=== PATIENT | male | born 1975 | race Caucasian/White ===

== ENCOUNTER 2017-07-17 08:01 | Inpatient (IN) | payer OTHER ==
[~2017-07-17] VITALS: Ht 180.3 cm; Wt 59.0 kg
[2017-07-17] VITALS (8 sets, daily range): BP systolic 106–135; BP diastolic 65–102; PULSE 88–148; RESP 14–20; TEMP 98.3–98.5; O2SAT 96–100
[2017-07-17] MEDS ORDERED: SODIUM CHLOR 0.9% 1000 ML INJ 1,000 ML IV SCH (08:29)
[2017-07-17] MEDS ORDERED: PANTOPRAZOLE INJ 80 MG in SODIUM CHLORIDE 0.9% INJ 35 ML IV ONE (08:29)
[2017-07-17] MEDS ORDERED: METOCLOPRAMIDE HCL 10 MG/2 ML VIAL IV PUSH ONE (08:30)
[2017-07-17] MEDS ORDERED: SODIUM CHLORIDE 0.9% FLUSH 10 ML FLUSH IVF PRN (08:30)
--- NOTE | 2017-07-17 08:32 | PD ---
HPI Chief Complaint: Bleeding Time Seen by Provider: 08:29 Travel History International Travel<30 days: No Contact w/Intl Traveler<30days: No Traveled to known affect area: No History of Present Illness HPI 42-year-old male patient with history of alcohol use, presents to the ER today for nausea, vomiting, vomiting blood this morning, and black stools this morning. He feels some lightheadedness but denies any chest pains, trouble breathing, or any other symptoms. He denies any previous history of gastrointestinal bleeding. He is not on any blood thinners or other medications. Modifying Factors: None Associated Signs & Symptoms: Vomiting blood, black stools Risk Factors: None PFSH Past Medical History Hypertension: Yes Tetanus Vaccination: Never Vaccinated Past Surgical History Abdominal Surgery: Yes (hernia) Social History Alcohol Use: Yes Tobacco Use: No Substance Use: No Allergies-Medications (Allergen,Severity, Reaction): Coded Allergies: No Known Allergies (Unverified , 07/17/17) Reported Meds & Prescriptions Reported Meds & Active Scripts Active No Active Prescriptions or Reported Medications Review of Systems Except as stated in HPI: all other systems reviewed are Neg Physical Exam Narrative GENERAL: Well-developed middle-age male patient currently in mild distress. Awake and oriented 3. SKIN: Focused skin assessment warm/dry. HEAD: Atraumatic. Normocephalic. EYES: Pupils equal and round. No scleral icterus. No injection or drainage. ENT: No nasal bleeding or discharge. Mucous membranes pink and moist. NECK: Trachea midline. No JVD. CARDIOVASCULAR: Regular rate and rhythm. No murmur appreciated. RESPIRATORY: No accessory muscle use. Clear to auscultation. Breath sounds equal bilaterally. GASTROINTESTINAL: Abdomen soft, non-tender, nondistended. Hepatic and splenic margins not palpable. RECTAL EXAM: No masses or tenderness, stool is dark, Hemoccult positive. MUSCULOSKELETAL: No obvious deformities. No clubbing. No cyanosis. No edema. NEUROLOGICAL: Awake and alert. No obvious cranial nerve deficits. Motor grossly within normal limits. Normal speech. PSYCHIATRIC: Appropriate mood and affect; insight and judgment normal. Data Data Last Documented VS Vital Signs Date Time Temp Pulse Resp B/P (MAP) Pulse Ox O2 Delivery O2 Flow Rate FiO2 07/17/17 08:20 121 16 135/102 (113) 100 Room Air 07/17/17 08:08 98.3 Orders Orders Complete Blood Count With Diff (07/17/17 08:29) Comprehensive Metabolic Panel (07/17/17 08:29) Lipase (07/17/17 08:29) Prothrombin Time / Inr (Pt) (07/17/17 08:29) Act Partial Throm Time (Ptt) (07/17/17 08:29) Type And Screen (07/17/17 08:29) Ecg Monitoring (07/17/17 08:29) Iv Access Insert/Monitor (07/17/17 08:29) Oximetry (07/17/17 08:29) Sodium Chlor 0.9% 1000 Ml Inj (Ns 1000 M (07/17/17 08:29) Sodium Chloride 0.9% Flush (Ns Flush) (07/17/17 08:30) Sodium Chloride 0.9... W/Pantoprazole In (07/17/17 08:29) Sodium Chloride 0.9... W/Pantoprazole In (07/17/17 08:29) Metoclopramide Inj (Reglan Inj) (07/17/17 08:30) Sodium Chlor 0.9% 1000 Ml Inj (Ns 1000 M (07/17/17 10:15) Chest, Single Ap (07/17/17 ) Place In Observation (07/17/17 ) Vital Signs (Adult) Q4H (07/17/17 10:13) Activity Bed Rest (07/17/17 10:13) Pick Up Driver / Telemetry JENN.Q8H (07/17/17 10:13) Intake + Output JENN.QSHIFT (07/17/17 10:13) Diet Npo (07/17/17 Lunch) Sodium Chloride 0.9% Flush (Ns Flush) (07/17/17 10:15) Sodium Chloride 0.9% Flush (Ns Flush) (07/17/17 21:00) Hgb & Hct (07/17/17 16:00) Hgb & Hct (07/17/17 22:00) Hgb & Hct (07/18/17 04:00) Hgb & Hct (07/18/17 10:00) Hgb & Hct (07/18/17 16:00) Hgb & Hct (07/18/17 22:00) Complete Blood Count With Diff (07/18/17 06:00) Comprehensive Metabolic Panel (07/18/17 06:00) Electrocardiogram (07/17/17 ) Resp Oxygen Conrad C Titrat 1-4 L (07/17/17 ) Consult Gastroenterology (07/17/17 ) Neuro Checks Q4H (07/17/17 10:19) Alcohol Withdrawal Asmt-Ciwa Q4HX18 (07/17/17 10:19) ^ Seizure Precautions (07/17/17 10:19) Folic Acid (Folate) (07/18/17 09:00) Thiamine (Vit B1) (Vitamin B1) (07/18/17 09:00) Multivitamins-Minerals Therap (Theragran (07/18/17 09:00) Flumazenil Inj (Romazicon Inj) (07/17/17 10:30) Lorazepam (Ativan) (07/17/17 10:30) Lorazepam Inj (Ativan Inj) (07/17/17 10:30) Lorazepam (Ativan) (07/17/17 10:30) Lorazepam Inj (Ativan Inj) (07/17/17 10:30) Lorazepam Inj (Ativan Inj) (07/17/17 10:30) Lorazepam Inj (Ativan Inj) (07/17/17 10:30) Haloperidol Inj (Haldol Inj) (07/17/17 10:30) Acetaminophen (Tylenol) (07/17/17 10:30) Ondansetron Inj (Zofran Inj) (07/17/17 10:30) Acetaminophen (Tylenol) (07/17/17 10:30) Naloxone Inj (Narcan Inj) (07/17/17 10:30) Docusate Sodium-Senna (Jeanie-Colace) (07/17/17 21:00) Magnesium Hydroxide Liq (Milk Of Magnesi (07/17/17 10:30) Sennosides (Senokot) (07/17/17 10:30) Bisacodyl Supp (Dulcolax Supp) (07/17/17 10:30) Lactulose Liq (Lactulose Liq) (07/17/17 10:30) Admit Order (Ed Use Only) (07/17/17 10:27) Labs Laboratory Tests Test 07/17/17 08:40 White Blood Count 10.7 TH/MM3 Red Blood Count 4.41 MIL/MM3 Hemoglobin 14.9 GM/DL Hematocrit 43.5 % Mean Corpuscular Volume 98.5 FL Mean Corpuscular Hemoglobin 33.8 PG Mean Corpuscular Hemoglobin Concent 34.3 % Red Cell Distribution Width 14.4 % Platelet Count 303 TH/MM3 Mean Platelet Volume 7.9 FL Neutrophils (%) (Auto) 73.3 % Lymphocytes (%) (Auto) 15.1 % Monocytes (%) (Auto) 10.0 % Eosinophils (%) (Auto) 1.0 % Basophils (%) (Auto) 0.6 % Neutrophils # (Auto) 7.8 TH/MM3 Lymphocytes # (Auto) 1.6 TH/MM3 Monocytes # (Auto) 1.1 TH/MM3 Eosinophils # (Auto) 0.1 TH/MM3 Basophils # (Auto) 0.1 TH/MM3 CBC Comment DIFF FINAL Differential Comment Prothrombin Time 10.2 SEC Prothromb Time International Ratio 1.0 RATIO Activated Partial Thromboplast Time 23.4 SEC Blood Urea Nitrogen 26 MG/DL Creatinine 0.93 MG/DL Random Glucose 114 MG/DL Total Protein 8.1 GM/DL Albumin 4.6 GM/DL Calcium Level 9.4 MG/DL Alkaline Phosphatase 85 U/L Aspartate Amino Transf (AST/SGOT) 110 U/L Alanine Aminotransferase (ALT/SGPT) 159 U/L Total Bilirubin 0.9 MG/DL Sodium Level 133 MEQ/L Potassium Level 4.1 MEQ/L Chloride Level 93 MEQ/L Carbon Dioxide Level 29.2 MEQ/L Anion Gap 11 MEQ/L Estimat Glomerular Filtration Rate 90 ML/MIN Lipase 99 U/L MDM Medical Decision Making Medical Screen Exam Complete: Yes Emergency Medical Condition: Yes Medical Record Reviewed: Yes Interpretation(s) Laboratory Tests Test 07/17/17 08:40 Red Blood Count 4.41 MIL/MM3 (4.50-5.90) Neutrophils (%) (Auto) 73.3 % (16.0-70.0) Monocytes (%) (Auto) 10.0 % (0.0-8.0) Neutrophils # (Auto) 7.8 TH/MM3 (1.8-7.7) Monocytes # (Auto) 1.1 TH/MM3 (0-0.9) Activated Partial Thromboplast Time 23.4 SEC (24.3-30.1) Blood Urea Nitrogen 26 MG/DL (7-18) Random Glucose 114 MG/DL (74-106) Aspartate Amino Transf (AST/SGOT) 110 U/L (15-37) Alanine Aminotransferase (ALT/SGPT) 159 U/L (12-78) Sodium Level 133 MEQ/L (136-145) Chloride Level 93 MEQ/L (98-107) Differential Diagnosis GI bleed Narrative Course Patient has been given IV fluids, Protonix in the ER, and H&H is currently stable. At this point, case has been discussed with GI doctor, Dr. Tan, who states he will scope him today. Planning to admit for hospitalist service. Case has been discussed with Dr. Mendieta for admission. [facility] Point of Care Internal Pos. & Neg. Controls: Passed Fecal Specimen Occult Blood: Positive Diagnosis Primary Impression: GI bleed Admitting Information Admitting Physician Requests: Admit Scripts No Active Prescriptions or Reported Meds Meenu Bruce MD July 17, 2017 08:32
[2017-07-17 08:58] LABS: AUTOMATED NEUTROPHIL # 7.8 TH/MM3 (1.8-7.7); BASOPHIL # 0.1 TH/MM3 (0-0.2); BASOPHIL % 0.6 % (0.0-2.0); EOSINOPHIL # 0.1 TH/MM3 (0-0.4); HEMATOCRIT 43.5 % (39.0-51.0); HEMOGLOBIN 14.9 GM/DL (13.0-17.0); LYMPH % 15.1 % (9.0-44.0); LYMPHOCYTE # 1.6 TH/MM3 (1.0-4.8); MEAN CELL VOLUME 98.5 FL (80.0-100.0); MEAN CORPUSCULAR HEMOGLOBIN 33.8 PG (27.0-34.0); MEAN CORPUSCULAR HGB CONC 34.3 % (32.0-36.0); MEAN PLATELET VOLUME 7.9 FL (7.0-11.0); MONOCYTE # 1.1 TH/MM3 (0-0.9); NEUT % 73.3 % (16.0-70.0); PLATELET COUNT 303 TH/MM3 (150-450); RED BLOOD COUNT 4.41 MIL/MM3 (4.50-5.90); RED CELL DISTRIBUTION WIDTH 14.4 % (11.6-17.2); WHITE BLOOD COUNT 10.7 TH/MM3 (4.0-11.0)
[2017-07-17 09:12] LABS: PROTHROMBIN TIME - PATIENT 10.2 SEC (9.8-11.6)
[2017-07-17 09:23] LABS: ALBUMIN 4.6 GM/DL (3.4-5.0); AST (GOT) 110 U/L (15-37); BICARBONATE 29.2 MEQ/L (21.0-32.0); BLOOD UREA NITROGEN 26 MG/DL (7-18); CALCIUM 9.4 MG/DL (8.5-10.1); CHLORIDE 93 MEQ/L (98-107); CREATININE 0.93 MG/DL (0.60-1.30); GLOMERULAR FILTRATION RATE 90 ML/MIN (>89); GLUCOSE,RANDOM 114 MG/DL (74-106); SODIUM (NA) 133 MEQ/L (136-145)
[2017-07-17 09:25] LABS: ALT (GPT) 159 U/L (12-78)
[2017-07-17 09:28] LABS: ALKALINE PHOSPHATASE 85 U/L (45-117); TOTAL BILIRUBIN ADULT 0.9 MG/DL (0.2-1.0); TOTAL PROTEIN 8.1 GM/DL (6.4-8.2)
[2017-07-17] MEDS: PANTOPRAZOLE INJ 80 MG in SODIUM CHLORIDE 0.9% INJ 100 ML IV SCH (09:31)
[2017-07-17] MEDS ORDERED: SODIUM CHLORIDE 0.9% FLUSH 10 ML FLUSH IV FLUSH PRN (10:15)
[2017-07-17] MEDS ORDERED: SODIUM CHLOR 0.9% 1000 ML INJ 1,000 ML IV ONE (10:15)
[2017-07-17] MEDS ORDERED: LACTULOSE SYRUP 20 GM/30 ML CUP PO PRN (10:30)
[2017-07-17] MEDS ORDERED: NALOXONE HCL 0.4 MG/ML AMP IV PUSH PRN (10:30)
[2017-07-17] MEDS ORDERED: ACETAMINOPHEN 325 MG TAB PO PRN ×2 (10:30→11:00)
[2017-07-17] MEDS ORDERED: LORazepam 1 MG TAB PO PRN (10:30)
[2017-07-17] MEDS ORDERED: LORazepam 2 MG TAB PO PRN (10:30)
[2017-07-17] MEDS ORDERED: LORazepam 2 MG/ML VIAL IV PUSH PRN ×4 (10:30)
[2017-07-17] MEDS ORDERED: FLUMAZENIL 0.5 MG/5 ML VIAL IV PUSH PRN (10:30)
[2017-07-17] MEDS ORDERED: BISACODYL 10 MG SUPP RECTAL PRN (11:00)
[2017-07-17] MEDS ORDERED: HALOPERIDOL LACTATE 5 MG/ML AMP IM PRN (11:00)
--- NOTE | 2017-07-17 11:03 | RADRPT ---
EXAM DATE: 07/17/2017 10:53 AM EDT AGE/SEX: 42 years / Male INDICATIONS: Short of breath CLINICAL DATA: This is the patient's initial encounter. Patient reports that signs and symptoms have been present for 1 day and indicates a pain score of 0/10. MEDICAL/SURGICAL HISTORY: None. None. COMPARISON: No prior [place] exams available for comparison. FINDINGS: A single AP view of the chest demonstrates the lungs to be symmetrically aerated without evidence of mass, infiltrate or effusion. The cardiomediastinal contours are unremarkable. Osseous structures a re intact. CONCLUSION: No active disease. Electronically signed by: Puma Torres MD 07/17/2017 11:02 AM EDT
--- NOTE | 2017-07-17 11:23 | HHI.HP ---
[facility] No Primary Care Physician Admission Diagnosis GI bleed/tachycardia Diagnoses: Chief Complaint: GI bleed Travel History International Travel<30 Days: No Contact w/Intl Traveler <30 Da: No Traveled to Known Affected Are: No History of Present Illness This is a 42-year-old male who presents to the emergency department because of GI bleed. Started last night when he vomited dark material associated with chills and diaphoresis. Early this morning, he again vomited this time with dark blood associated with upper abdominal pressure which he has been having for some time now states feels like indigestion. He also noted dark foul- smelling loose stools today. Denies history of GI bleed, aspirin and NSAID usage. Patient history of hypertension, alcohol abuse and recently quit tobacco. In the ED he was guaiac positive. All other systems reviewed negative Review of Systems Except as stated in HPI: all other systems reviewed are Neg Past Family Social History Past Medical History Hypertension Past Surgical History Hernia repair Reported Medications None Allergies: Coded Allergies: No Known Allergies (Unverified , 07/17/17) Family History Diabetes Social History As previously mentioned Physical Exam Vital Signs Vital Signs Date Time Temp Pulse Resp B/P (MAP) Pulse Ox O2 Delivery O2 Flow Rate FiO2 07/17/17 10:52 109 18 121/87 (98) 96 Room Air 07/17/17 08:20 121 16 135/102 (113) 100 Room Air 07/17/17 08:08 98.3 148 20 106/88 (94) 99 Physical Exam GENERAL: This is a well-nourished, well-developed patient, in no apparent distress. SKIN: No rashes, ecchymoses or lesions. Diaphoretic HEAD: Atraumatic. Normocephalic. No temporal or scalp tenderness. EYES: Pupils equal round and reactive. Extraocular motions intact. No scleral icterus. No injection or drainage. ENT: Nose without bleeding, purulent drainage or septal hematoma. Throat without erythema, tonsillar hypertrophy or exudate. Uvula midline. Airway patent. NECK: Trachea midline. No JVD or lymphadenopathy. Supple, nontender, no meningeal signs. CARDIOVASCULAR: Bradycardic with normal rhythm without murmurs, gallops, or rubs. RESPIRATORY: Clear to auscultation. Breath sounds equal bilaterally. No wheezes , rales, or rhonchi. GASTROINTESTINAL: Abdomen soft, tender epigastric, nondistended. No guarding. MUSCULOSKELETAL: Extremities without clubbing, cyanosis, or edema. No joint tenderness, effusion, or edema noted. No calf tenderness. Negative Homans sign bilaterally. NEUROLOGICAL: Awake and alert. Cranial nerves II through XII intact. Motor and sensory grossly within normal limits. Five out of 5 muscle strength in all muscle groups. Normal speech. No tremors Laboratory Laboratory Tests Test 07/17/17 08:40 White Blood Count 10.7 Red Blood Count 4.41 Hemoglobin 14.9 Hematocrit 43.5 Mean Corpuscular Volume 98.5 Mean Corpuscular Hemoglobin 33.8 Mean Corpuscular Hemoglobin Concent 34.3 Red Cell Distribution Width 14.4 Platelet Count 303 Mean Platelet Volume 7.9 Neutrophils (%) (Auto) 73.3 Lymphocytes (%) (Auto) 15.1 Monocytes (%) (Auto) 10.0 Eosinophils (%) (Auto) 1.0 Basophils (%) (Auto) 0.6 Neutrophils # (Auto) 7.8 Lymphocytes # (Auto) 1.6 Monocytes # (Auto) 1.1 Eosinophils # (Auto) 0.1 Basophils # (Auto) 0.1 CBC Comment DIFF FINAL Differential Comment Prothrombin Time 10.2 Prothromb Time International Ratio 1.0 Activated Partial Thromboplast Time 23.4 Blood Urea Nitrogen 26 Creatinine 0.93 Random Glucose 114 Total Protein 8.1 Albumin 4.6 Calcium Level 9.4 Alkaline Phosphatase 85 Aspartate Amino Transf (AST/SGOT) 110 Alanine Aminotransferase (ALT/SGPT) 159 Total Bilirubin 0.9 Sodium Level 133 Potassium Level 4.1 Chloride Level 93 Carbon Dioxide Level 29.2 Anion Gap 11 Estimat Glomerular Filtration Rate 90 Lipase 99 Result Diagram: 07/17/17 0840 07/17/17 0840 Imaging Last Impressions Chest X-Ray 07/17/17 0000 Signed Impressions: CONCLUSION: No active disease. Caprini VTE Risk Assessment Caprini VTE Risk Assessment: No/Low Risk (score <= 1) Caprini Risk Assessment Model Point Value = 1 Point Value = 2 Point Value = 3 Point Value = 5 Age 41-60 Minor surgery BMI > 25 kg/m2 Swollen legs Varicose veins or History of unexplained or recurrent spontaneous Oral contraceptives or hormone replacement Sepsis (< 1 month) Serious lung disease, including pneumonia (< 1 month) Abnormal pulmonary function Acute myocardial infarction Congestive heart failure (< 1 month) History of inflammatory bowel disease Medical patient at bed rest Age 61-74 Arthroscopic surgery Major open surgery (> 45 min) Laparoscopic surgery (> 45 min) Malignancy Confined to bed (> 72 hours) Immobilizing plaster cast Central venous access Age >= 75 History of VTE Family history of VTE Factor V Leiden Prothrombin [id number] Lupus anticoagulant Anticardiolipin antibodies Elevated serum homocysteine Heparin-induced thrombocytopenia Other congenital or acquired thrombophilia Stroke (< 1 month) Elective arthroplasty Hip, pelvis, or leg fracture Acute spinal cord injury (< 1 month) Prophylaxis Regimen Total Risk Factor Score Risk Level Prophylaxis Regimen 0-1 Low Early ambulation 2 Moderate Order ONE of the following: *Sequential Compression Device (SCD) *Heparin 5000 units SQ BID 3-4 Higher Order ONE of the following medications: *Heparin 5000 units SQ TID *Enoxaparin/Lovenox 40 mg SQ daily (WT < 150 kg, CrCl > 30 mL/min) *Enoxaparin/Lovenox 30 mg SQ daily (WT < 150 kg, CrCl > 10-29 mL/min) *Enoxaparin/Lovenox 30 mg SQ BID (WT < 150 kg, CrCl > 30 mL/min) AND/OR *Sequential Compression Device (SCD) 5 or more Highest Order ONE of the following medications: *Heparin 5000 units SQ TID (Preferred with Epidurals) *Enoxaparin/Lovenox 40 mg SQ daily (WT < 150 kg, CrCl > 30 mL/min) *Enoxaparin/Lovenox 30 mg SQ daily (WT < 150 kg, CrCl > 10-29 mL/min) *Enoxaparin/Lovenox 30 mg SQ BID (WT < 150 kg, CrCl > 30 mL/min) AND *Sequential Compression Device (SCD) Assessment and Plan Problem List: (1) GI bleed ICD Code: K92.2 - Gastrointestinal hemorrhage, unspecified Status: Acute Assessment and Plan This is a 42-year-old male who presents to the emergency department because of vomiting with dark blood associated with upper abdominal pressure, diaphoresis and chills Upper GI bleed. Patient will be kept n.p.o., start IV hydration and continue Protonix infusion. GI has been consulted for endoscopy. Monitor blood counts Alcohol abuse. Counseled. CIWA protocol Mild hyponatremia likely from alcohol use. Asymptomatic. Monitor History of hypertension. Will monitor Low risk for DVT Discussed Condition With Patient Bret Mendieta MD July 17, 2017 11:23
[2017-07-17] MEDS: SODIUM CHLOR 0.9% 1000 ML INJ 1,000 ML IV SCH (11:30)
[2017-07-17] MEDS ORDERED: PROPOFOL 200 MG/20 ML AMP IV ONE (12:00)
[2017-07-17] MEDS ORDERED: ONDANSETRON HCL 4 MG/2 ML VIAL IVP PRN (12:00)
--- NOTE | 2017-07-17 12:53 | PD.CONS ---
HPI History of Present Illness This is a 42 year old slim male who presented to the emergency room department on 07/17/2017 with symptoms of chills, coffee-ground emesis as well as melena stools. Onset of symptoms within the last 24 hours and continues with tachycardic heart rate which is currently 109. Patient has had at least 5 large loose diarrhea stools which are dark and tarry and he notes nausea and vomiting coffee-ground emesis on 3 different occasions over the past 24 hours. Patient notes abdominal pain predominantly in the gastric area and does note some heartburn up into the esophageal area. Patient states that he has noted some mild heartburn over the past year but has never had any previous treatment for GERD or reflux. Patient denies any history of EGD or colonoscopy. Patient does note daily alcohol consumption of at least 6-8 beers since the age of 23. Patient has also been a long-term tobacco user but had cut down over the past few months and actually quit this past week with his . He denies any illicit drug use. He is and his and small children are at his bedside. No family history of colon cancer but mother has a history of hep C. (Cristal Blake) PFSH Past Medical History Hypertension Tobacco dependence Alcohol dependence Past Surgical History Hernia repair (Cristal Blake) Coded Allergies: No Known Allergies (Unverified , 07/17/17) Medications Administered Medications Medications (Trade) Dose Ordered Sig/Gabriel Route PRN Reason Start Time Stop Time Status Last Admin Dose Admin Pantoprazole Sodium 80 mg/ Sodium Chloride 100 ml @ 10 mls/hr Q10H IV 07/17/17 08:29 07/17/17 09:31 Family History Diabetes No family history of colon cancer mom history of hep C Social History As previously mentioned (Cristal Blake) Review of Systems Gastrointestinal: COMPLAINS OF: Abdominal pain, Black stools (Gastric), Nausea , Vomiting Psychiatric: COMPLAINS OF: Anxiety (Cristal Blake) GI Exam Vitals I&O Vital Signs Date Time Temp Pulse Resp B/P (MAP) Pulse Ox O2 Delivery O2 Flow Rate FiO2 07/17/17 12:15 14 96 Room Air 07/17/17 10:52 109 18 121/87 (98) 96 Room Air 07/17/17 10:46 98 21 07/17/17 08:20 121 16 135/102 (113) 100 Room Air 07/17/17 08:08 98.3 148 20 106/88 (94) 99 I/O 07/16/17 07/16/17 07/16/17 07/17/17 07/17/17 07/17/17 07:00 15:00 23:00 07:00 15:00 23:00 Intake Total 1000 ml Balance 1000 ml Intake IV Total 1000 ml Imaging Last Impressions Chest X-Ray 07/17/17 0000 Signed Impressions: CONCLUSION: No active disease. Laboratory Test 07/17/17 08:40 White Blood Count 10.7 TH/MM3 Red Blood Count 4.41 MIL/MM3 Hemoglobin 14.9 GM/DL Hematocrit 43.5 % Mean Corpuscular Volume 98.5 FL Mean Corpuscular Hemoglobin 33.8 PG Mean Corpuscular Hemoglobin Concent 34.3 % Red Cell Distribution Width 14.4 % Platelet Count 303 TH/MM3 Mean Platelet Volume 7.9 FL Neutrophils (%) (Auto) 73.3 % Lymphocytes (%) (Auto) 15.1 % Monocytes (%) (Auto) 10.0 % Eosinophils (%) (Auto) 1.0 % Basophils (%) (Auto) 0.6 % Neutrophils # (Auto) 7.8 TH/MM3 Lymphocytes # (Auto) 1.6 TH/MM3 Monocytes # (Auto) 1.1 TH/MM3 Eosinophils # (Auto) 0.1 TH/MM3 Basophils # (Auto) 0.1 TH/MM3 CBC Comment DIFF FINAL Differential Comment Prothrombin Time 10.2 SEC Prothromb Time International Ratio 1.0 RATIO Activated Partial Thromboplast Time 23.4 SEC Blood Urea Nitrogen 26 MG/DL Creatinine 0.93 MG/DL Random Glucose 114 MG/DL Total Protein 8.1 GM/DL Albumin 4.6 GM/DL Calcium Level 9.4 MG/DL Alkaline Phosphatase 85 U/L Aspartate Amino Transf (AST/SGOT) 110 U/L Alanine Aminotransferase (ALT/SGPT) 159 U/L Total Bilirubin 0.9 MG/DL Sodium Level 133 MEQ/L Potassium Level 4.1 MEQ/L Chloride Level 93 MEQ/L Carbon Dioxide Level 29.2 MEQ/L Anion Gap 11 MEQ/L Estimat Glomerular Filtration Rate 90 ML/MIN Lipase 99 U/L Physical Examination HEENT: Pupils round and reactive to light; normocephalic; atraumatic; no jaundice. Speech clear NECK: Neck is supple, no JVD, no lymphadenopathy. CHEST: Chest is clear to auscultation and percussion. CARDIAC: Sinus tachycardia currently 109 heart rate ABDOMEN: Soft, nondistended, gastric tenderness to light palpation as well as aching sensation ,no hepatosplenomegaly; bowel sounds are present in all four quadrants. EXTREMITIES: No clubbing, cyanosis, or edema. SKIN: Normal; no rash; no jaundice. 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 Patient's had complications of coffee-ground emesis 3 over the past 24 hours as well as up to 5 large melena stools. He continues to have symptoms; heart rate is currently 109 mild tachycardia. Patient denies any history of GI bleed but does consume daily alcohol since the age of 23 as well as tobacco abuse up until this past week he has a history of mom with hep C but no family history of colon cancer. He also notes approximately 15 pound weight loss in the past 2 -3 years unintentional. Patient also notes symptoms of GERD and reflux over the past year but is never had any treatment for it no previous EGD or colonoscopy currently patient is n.p.o. Current hemoglobin is 14.9, elevated liver enzymes with AST 110 and ALT 159. Total bilirubin normal at 0.9 these elevated liver enzymes may be related to alcoholic hepatitis versus hepatocellular disease. Discussed with the patient the need to follow us on an outpatient basis when he is discharged for monitoring of his LFTs and liver workup. Plan EGD today, consent, called to place on GI schedule confirmed Maintain n.p.o. PPI Antiemetics Monitor labs with special attention to any drop in hemoglobin or obvious bleeding Hepatitis panel Ultrasound of the abdomen Further recommendations to follow Patient was seen per myself and Dr. Tan, note was written on his behalf (Cristal Blake) Physician Comments Patient seen and examined Agree with above Continue with current supportive care Monitor labs Plan for EGD today (Rickey Tan MD) Cristal Blake July 17, 2017 12:53 Rickey Tan MD July 17, 2017 18:33
--- NOTE | 2017-07-17 14:35 | RADRPT ---
EXAM DATE: 07/17/2017 2:24 PM EDT AGE/SEX: 42 years / Male INDICATIONS: Increased lab values. Nausea and vomiting. CLINICAL DATA: This is the patient's initial encounter. Patient reports that signs and symptoms have been present for 1 day and indicates a pain score of 0/10. MEDICAL/SURGICAL HISTORY: Hypertension. Hernia. . Hernia repair. COMPARISON: No prior [place] exams available for comparison. No external comparison. MEASUREMENTS (cm x cm x cm): Liver:__ 16.4 cm length Common Bile Duct:__ 4mm Right Kidney:__ 11.6 x 6.3 x 4.1 cm FINDINGS: Liver: Small anechoic cyst measuring 7 x 6 x 5 mm in the left lobe of the liver. Liver otherwise demo nstrates normal echogenicity without volume loss or focal mass. Portal Vein: Hepatofugal flow seen in portal vein. Common Duct: No intraluminal mass or stone visualized. Gallbladder: Demonstrates no wall thickening or pericholecystic fluid. No stones visualized. Gallbla dder Wall: 2 mm Pancreas: The visualized portions are within normal limits Right Kidney: Normal cortical echogenicity without focal mass or hydronephrosis. Other: None. CONCLUSION: 1. Small subcentimeter cyst in the left lobe of the liver. 2. Otherwise, unremarkable right upper quadrant ultrasound exam. Specifically, no sonographic eviden ce for cholelithiasis or acute cholecystitis. Electronically signed by: Rickey Parmar MD 07/17/2017 2:34 PM EDT
[2017-07-17] MEDS ORDERED: METOPROLOL TARTRATE 25 MG TAB PO PRN (14:45)
[2017-07-17] MEDS ORDERED: CHLORHEXIDINE GLUCONATE 2 % 1 PACK (2 CLOTHS) TOPICAL PRN (14:45)
[2017-07-17] MEDS ORDERED: LACTATED RINGER'S 1000 ML IV PRN (14:45)
[2017-07-17] MEDS ORDERED: POVIDONE IODINE 5% (ANTISEPSIS KIT) 4 APPLICATIONS EACH NARE PRN (14:45)
[2017-07-17] MEDS ORDERED: SODIUM CHLORID 0.9% 500 ML IV PRN (14:45)
--- NOTE | 2017-07-17 18:36 | PD.PROCEDR ---
GI Procedure PROCEDURE PERFORMED EGD INDICATION FOR PROCEDURE GI bleed PROCEDURE: The procedure, risks and benefits were discussed with Patient/POA and informed consent was obtained. Anesthesia sedated Patient with Diprivan. Patient was placed in the left lateral decubitus position. EGD: The Pentax videoscope was introduced through the oropharynx and advanced to the second portion of the duodenum under direct visualization. Retroflexion was performed in the stomach. FINDINGS: The esophagus this was normal The stomach there was a large clot covering the greater curve of the stomach with evidence of fresh blood otherwise the rest of the gastric mucosa was unremarkable the fundus showed no evidence of varices in the antrum was basically normal and the lesser curve was also normal The duodenum this was normal ESTIMATED BLOOD LOSS: There was at least 100 cc of blood in the stomach if not more SPECIMENS REMOVED: None COMPLICATIONS: None IMPRESSION: Gastric bleed from the greater curve of the stomach PLAN: We will type and cross and hold 2 units of blood We will get a stat H&H Case was discussed with interventional radiology patient will be going down for angiogram possible embolization Continue PPI Rickey Tan MD July 17, 2017 18:35
[2017-07-17 18:51] LABS: HEMATOCRIT 27.8 % (39.0-51.0); HEMOGLOBIN 9.5 GM/DL (13.0-17.0)
[2017-07-17 19:23] LABS: INTERNATIONAL NORMALIZED RATIO 1.1 RATIO; PROTHROMBIN TIME - PATIENT 11.2 SEC (9.8-11.6)
[2017-07-17] MEDS ORDERED: MIDAZOLAM HCL 2 MG/2 ML VIAL ONE ×3 (19:56→20:16)
[2017-07-17] MEDS ORDERED: IODIXANOL 320 MG/ML 50 ML VIAL (for RAD SPEC) I-ARTERIAL ONE (20:47)
[2017-07-17] MEDS ORDERED: GELATIN 12 MM/7 MM FOAM I-ARTERIAL ONE (20:47)
[2017-07-17] MEDS: DOCUSATE SODIUM 50 MG/SENNA 8.6 MG TAB PO SCH (21:00)
[2017-07-17] MEDS ORDERED: SENNOSIDES 8.6 MG TAB PO PRN (21:00)
[2017-07-17] MEDS ORDERED: MAGNESIUM HYDROXIDE SUSP 30 ML CUP PO PRN (21:00)
[2017-07-17] MEDS: SODIUM CHLORIDE 0.9% FLUSH 10 ML FLUSH IV FLUSH SCH (21:00)
--- NOTE | 2017-07-17 21:07 | PD.RAD ---
Post Procedure Progress Note Pre Procedure Diagnosis: (1) GI bleed Post Procedure Diagnosis: (1) GI bleed Procedure Date: July 17, 2017 Supervising Radiologist: Maciel Mcknight Proceduralist/Assist: Olivia Calvo, RT(R)(CV), Sugey Lawton RT(R) Anesthesia: Local, Analgesia, Conscious Sedation Plan of Activity Patient to Unit: Other (ED) Patient Condition: Fair See PACS Report for procedural detail/treatment Vascular-Arterial Procedure Procedure 1 Procedure Site: Celiac (right gastroepiploic) Procedure(s): Angiogram, Embolization Access Access Site(s): Right Femoral Artery Closure Site(s): Right hemostasis patch Findings: Replaced right hepatic. No active bleed. Right Gastroepiploic embolized with gel-foam and series of tornado and interlock coils Maciel Mcknight MD July 17, 2017 21:07
[2017-07-18] VITALS (17 sets, daily range): BP systolic 110–118; BP diastolic 64–78; PULSE 76–116; RESP 16–20; TEMP 96.2–99.1; O2SAT 94–100
[2017-07-18 00:26] LABS: HEMATOCRIT 19.9 % (39.0-51.0); HEMOGLOBIN 6.8 GM/DL (13.0-17.0)
[2017-07-18] MEDS: PANTOPRAZOLE INJ 80 MG in SODIUM CHLORIDE 0.9% INJ 100 ML IV SCH ×3 (02:03→14:29)
[2017-07-18] MEDS: SODIUM CHLOR 0.9% 1000 ML INJ 1,000 ML IV SCH ×3 (04:38→23:15)
[2017-07-18 07:04] LABS: AUTOMATED NEUTROPHIL # 5.3 TH/MM3 (1.8-7.7); BASOPHIL % 0.5 % (0.0-2.0); EOSINOPHIL # 0.1 TH/MM3 (0-0.4); EOSINOPHIL % 0.9 % (0.0-4.0); HEMATOCRIT 22.5 % (39.0-51.0); HEMOGLOBIN 7.7 GM/DL (13.0-17.0); LYMPH % 31.3 % (9.0-44.0); LYMPHOCYTE # 2.7 TH/MM3 (1.0-4.8); MEAN CORPUSCULAR HEMOGLOBIN 30.6 PG (27.0-34.0); MEAN PLATELET VOLUME 8.1 FL (7.0-11.0); MONO % 7.3 % (0.0-8.0); MONOCYTE # 0.6 TH/MM3 (0-0.9); PLATELET COUNT 127 TH/MM3 (150-450); RED CELL DISTRIBUTION WIDTH 19.5 % (11.6-17.2); WHITE BLOOD COUNT 8.8 TH/MM3 (4.0-11.0)
[2017-07-18 07:40] LABS: ALBUMIN 2.3 GM/DL (3.4-5.0); BICARBONATE 23.6 MEQ/L (21.0-32.0); CALCIUM-PROTEIN CORRECTED 8.7 MG/DL (8.5-10.1); CREATININE 0.53 MG/DL (0.60-1.30); TOTAL BILIRUBIN ADULT 0.6 MG/DL (0.2-1.0); TOTAL PROTEIN 4.1 GM/DL (6.4-8.2)
[2017-07-18] MEDS: DOCUSATE SODIUM 50 MG/SENNA 8.6 MG TAB PO SCH ×2 (09:00→21:38)
[2017-07-18] MEDS: SODIUM CHLORIDE 0.9% FLUSH 10 ML FLUSH IV FLUSH SCH ×2 (09:51→21:43)
[2017-07-18] MEDS: MULTIVITAMINS/MINERALS THERAPEUTIC TAB PO SCH (09:51)
[2017-07-18] MEDS: FOLIC ACID 1 MG TAB PO SCH (09:51)
[2017-07-18] MEDS: THIAMINE HCL 100 MG TAB PO SCH (09:51)
--- NOTE | 2017-07-18 09:59 | HHI.PR ---
Subjective Remarks Follow-up GI bleed. Still having melena. He develops palpitations when he gets out of bed. Objective Vitals Vital Signs Date Time Temp Pulse Resp B/P (MAP) Pulse Ox O2 Delivery O2 Flow Rate FiO2 07/18/17 09:08 96 21 07/18/17 08:06 98.2 116 18 116/65 (82) 98 07/18/17 06:49 98.6 78 18 110/78 99 07/18/17 06:15 98.8 112 18 118/78 99 07/18/17 05:10 98.8 92 18 112/78 99 07/18/17 04:22 98.8 108 16 116/69 (85) 100 07/18/17 04:03 98.4 102 18 110/76 99 07/18/17 03:39 98.6 110 18 110/78 99 07/18/17 02:48 98.2 108 18 110/69 (83) 99 07/18/17 02:16 98.2 110 18 116/78 99 07/18/17 01:39 98.0 106 18 110/72 99 07/18/17 01:20 98.0 102 18 116/78 (91) 99 07/18/17 00:47 96.2 101 18 115/75 (88) 98 07/17/17 23:50 98.5 99 07/17/17 23:50 88 18 110/70 (83) 07/17/17 23:20 98.5 105 16 117/79 (92) 99 07/17/17 22:31 98.4 115 16 108/65 (79) 100 07/17/17 22:15 98.2 100 16 99 Nasal Cannula 2 07/17/17 22:00 122 16 105/67 (80) 100 Nasal Cannula 2 07/17/17 21:45 108 14 105/65 (78) 99 Nasal Cannula 2 07/17/17 21:30 104 14 112/60 (77) 100 Nasal Cannula 2 07/17/17 21:15 98.8 101 12 110/64 (79) 100 Nasal Cannula 2 07/17/17 19:06 106 18 101/62 (75) 100 Room Air 07/17/17 18:50 100 18 105/61 (76) 100 Room Air 07/17/17 18:42 98.8 115 18 100/63 (75) 100 Room Air 07/17/17 12:15 14 96 Room Air 07/17/17 10:52 109 18 121/87 (98) 96 Room Air 07/17/17 10:46 98 21 I/O 07/17/17 07/17/17 07/17/17 07/18/17 07/18/17 07/18/17 07:00 15:00 23:00 07:00 15:00 23:00 Intake Total 1000 ml 1000 ml 2940 ml Output Total 500 ml Balance 1000 ml 1000 ml 2440 ml Intake Oral 350 ml IV Total 1000 ml 1080 ml Packed Cells 1450 ml Blood Product IV Normal Saline Flush 60 ml Other 1000 ml Output Stool Total 500 ml # Bowel Movements 1 5 Result Diagram: 07/18/17 0635 07/18/17 0635 Imaging Last Impressions Liver Ultrasound 07/17/17 0000 Signed Impressions: CONCLUSION: 1. Small subcentimeter cyst in the left lobe of the liver. 2. Otherwise, unremarkable right upper quadrant ultrasound exam. Specifically, no sonographic evidence for cholelithiasis or acute cholecystitis. Chest X-Ray 07/17/17 0000 Signed Impressions: CONCLUSION: No active disease. Objective Remarks GENERAL: This is a well-nourished, well-developed patient, in no apparent distress. SKIN: No rashes, ecchymoses or lesions. Diaphoretic CARDIOVASCULAR: Tachycardic with normal rhythm without murmurs, gallops, or rubs. RESPIRATORY: Clear to auscultation. Breath sounds equal bilaterally. No wheezes , rales, or rhonchi. GASTROINTESTINAL: Abdomen soft, tender epigastric, nondistended. No guarding. MUSCULOSKELETAL: Extremities without clubbing, cyanosis, or edema. No joint tenderness, effusion, or edema noted. No calf tenderness. Negative Homans sign bilaterally. NEUROLOGICAL: Awake and alert. Cranial nerves II through XII intact. Motor and sensory grossly within normal limits. Five out of 5 muscle strength in all muscle groups. Normal speech. No tremors Procedures EGD and gastroepiploic artery embolization A/P Problem List: (1) GI bleed ICD Code: K92.2 - Gastrointestinal hemorrhage, unspecified Status: Acute Assessment and Plan This is a 42-year-old male who presents to the emergency department because of vomiting with dark blood associated with upper abdominal pressure, diaphoresis and chills Gastric bleeding status post gastroepiploic artery embolization. Patient will be on clear liquid diet, IV hydration and Protonix infusion. GI consulted Anemia secondary to acute blood loss status post transfusion. He is symptomatic we will transfuse 1 more unit and continue blood count monitoring to keep hemoglobin at least 7 Alcohol abuse. Counseled. [facility] protocol Mild hyponatremia likely from alcohol use. Asymptomatic. Monitor History of hypertension. Will monitor Low risk for DVT Discharge Planning Not ready for discharge Bret Mendieta MD July 18, 2017 09:59
[2017-07-18] MEDS ORDERED: SODIUM CHLOR 0.9% 250 ML INJ 250 ML IV ONE (10:00)
[2017-07-18] MEDS ORDERED: NITROGLYCERIN 1000 MCG/5 ML VIAL OTHER ONE (10:55)
[2017-07-18] MEDS ORDERED: SUCCINYLCHOLINE CHLORIDE 200 MG/10 ML VIAL IV ONE (12:00)
[2017-07-18] MEDS ORDERED: PHENYLEPH/NS 1000 MCG/10 ML SYR IV ONE (12:00)
[2017-07-18] MEDS ORDERED: DEXAMETHASONE SOD PHOS 4 MG/ML VIAL IV ONE (12:00)
[2017-07-18] MEDS ORDERED: PROPOFOL 200 MG/20 ML AMP IV ONE (12:00)
[2017-07-18] MEDS ORDERED: ONDANSETRON HCL 4 MG/2 ML VIAL IV PUSH ONE (12:00)
[2017-07-18] MEDS ORDERED: LIDOCAINE HCL 1% PF 5 ML SYRINGE OTHER ONE (12:00)
[2017-07-18] MEDS ORDERED: METOCLOPRAMIDE HCL 10 MG/2 ML VIAL IV PUSH ONE (12:30)
--- NOTE | 2017-07-18 12:34 | HHI.GIFU ---
Subjective Remarks Pt is resting in bed, still passing black stools not as bad as they used to be, received 2 units of blood last night, hgb today is 7.7, currently receiving 3rd unit. (Helen Stephens SARKIS) Objective Vitals I&O Vital Signs Date Time Temp Pulse Resp B/P (MAP) Pulse Ox O2 Delivery O2 Flow Rate FiO2 07/18/17 11:40 98.8 76 18 111/64 100 07/18/17 11:13 97.9 86 20 112/68 94 07/18/17 09:08 96 21 07/18/17 08:06 98.2 116 18 116/65 (82) 98 07/18/17 06:49 98.6 78 18 110/78 99 07/18/17 06:15 98.8 112 18 118/78 99 07/18/17 05:10 98.8 92 18 112/78 99 07/18/17 04:22 98.8 108 16 116/69 (85) 100 07/18/17 04:03 98.4 102 18 110/76 99 07/18/17 03:39 98.6 110 18 110/78 99 07/18/17 02:48 98.2 108 18 110/69 (83) 99 07/18/17 02:16 98.2 110 18 116/78 99 07/18/17 01:39 98.0 106 18 110/72 99 07/18/17 01:20 98.0 102 18 116/78 (91) 99 07/18/17 00:47 96.2 101 18 115/75 (88) 98 07/17/17 23:50 98.5 99 07/17/17 23:50 88 18 110/70 (83) 07/17/17 23:20 98.5 105 16 117/79 (92) 99 07/17/17 22:31 98.4 115 16 108/65 (79) 100 07/17/17 22:15 98.2 100 16 99 Nasal Cannula 2 07/17/17 22:00 122 16 105/67 (80) 100 Nasal Cannula 2 07/17/17 21:45 108 14 105/65 (78) 99 Nasal Cannula 2 07/17/17 21:30 104 14 112/60 (77) 100 Nasal Cannula 2 07/17/17 21:15 98.8 101 12 110/64 (79) 100 Nasal Cannula 2 07/17/17 19:06 106 18 101/62 (75) 100 Room Air 07/17/17 18:50 100 18 105/61 (76) 100 Room Air 07/17/17 18:42 98.8 115 18 100/63 (75) 100 Room Air I/O 07/17/17 07/17/17 07/17/17 07/18/17 07/18/17 07/18/17 07:00 15:00 23:00 07:00 15:00 23:00 Intake Total 1000 ml 1000 ml 2940 ml Output Total 500 ml Balance 1000 ml 1000 ml 2440 ml Intake Oral 350 ml IV Total 1000 ml 1080 ml Packed Cells 1450 ml Blood Product IV Normal Saline Flush 60 ml Other 1000 ml Output Stool Total 500 ml # Bowel Movements 1 5 Laboratory Laboratory Tests Test 07/17/17 18:29 07/17/17 23:40 07/18/17 06:35 Hemoglobin 9.5 6.8 7.7 Hematocrit 27.8 19.9 22.5 Prothrombin Time 11.2 Prothromb Time International Ratio 1.1 Activated Partial Thromboplast Time 24.7 Hepatitis A IgM Antibody NONREACTIVE Hepatitis B Surface Antigen NONREACTIVE Hepatitis B Core IgM Antibody NONREACTIVE Hepatitis C IgG Antibody NONREACTIVE White Blood Count 8.8 Red Blood Count 2.50 Mean Corpuscular Volume 90.0 Mean Corpuscular Hemoglobin 30.6 Mean Corpuscular Hemoglobin Concent 34.0 Red Cell Distribution Width 19.5 Platelet Count 127 Mean Platelet Volume 8.1 Neutrophils (%) (Auto) 60.0 Lymphocytes (%) (Auto) 31.3 Monocytes (%) (Auto) 7.3 Eosinophils (%) (Auto) 0.9 Basophils (%) (Auto) 0.5 Neutrophils # (Auto) 5.3 Lymphocytes # (Auto) 2.7 Monocytes # (Auto) 0.6 Eosinophils # (Auto) 0.1 Basophils # (Auto) 0.0 CBC Comment DIFF FINAL Differential Comment Blood Urea Nitrogen 28 Creatinine 0.53 Random Glucose 77 Total Protein 4.1 Albumin 2.3 Calcium Level 7.0 Alkaline Phosphatase 34 Aspartate Amino Transf (AST/SGOT) 23 Alanine Aminotransferase (ALT/SGPT) 58 Total Bilirubin 0.6 Sodium Level 140 Potassium Level 3.9 Chloride Level 108 Carbon Dioxide Level 23.6 Anion Gap 8 Estimat Glomerular Filtration Rate 172 Protein Corrected Calcium 8.7 Imaging Last Impressions Liver Ultrasound 07/17/17 Signed Impressions: CONCLUSION: 1. Small subcentimeter cyst in the left lobe of the liver. 2. Otherwise, unremarkable right upper quadrant ultrasound exam. Specifically, no sonographic evidence for cholelithiasis or acute cholecystitis. Chest X-Ray 07/17/17 Signed Impressions: CONCLUSION: No active disease. Physical Exam HEENT: normocephalic; atraumatic; no jaundice. CHEST: Chest is clear to auscultation and percussion. CARDIAC: Regular rate and rhythm with no murmur gallop or rubs. ABDOMEN: Soft, nondistended, some abd tenderness; no hepatosplenomegaly; bowel sounds are present in all four quadrants. EXTREMITIES: No clubbing, cyanosis, or edema. SKIN: Normal; no rash; no jaundice. AUTOMATIC LINE SET UP MECHANIC: No focal deficits; alert and oriented times three. (Helen Stephens) Assessment and Plan Assessment: (1) GI bleed ICD Codes: K92.2 - Gastrointestinal hemorrhage, unspecified Status: Acute Plan 42-year-old male admitted on 07/17/2017 with probable upper GI bleed. Patient's had complications of coffee-ground emesis 3 over the past 24 hours as well as up to 5 large melena stools. He continues to have symptoms; heart rate is currently 109 mild tachycardia. Patient denies any history of GI bleed but does consume daily alcohol since the age of 23 as well as tobacco abuse up until this past week he has a history of mom with hep C but no family history of colon cancer. He also notes approximately 15 pound weight loss in the past 2 -3 years unintentional. Patient also notes symptoms of GERD and reflux over the past year but is never had any treatment for it no previous EGD or colonoscopy currently patient is n.p.o. Current hemoglobin is 14.9, elevated liver enzymes with AST 110 and ALT 159. Total bilirubin normal at 0.9 these elevated liver enzymes may be related to alcoholic hepatitis versus hepatocellular disease. Discussed with the patient the need to follow us on an outpatient basis when he is discharged for monitoring of his LFTs and liver workup. 07/18 still passing black stools, drop in hgb, 2 units of blood over night, hgb today is 7.7, receiving 3rd unit today S/p EGD 07/17 ,Gastric bleed from the greater curve of the stomach s/p angiogram yesterday with no active bleed US unremarkable, hepatitis panel negative LFTs back to normal Plan NPO Insert NGT now Stomach Lavage with 1 L saline, this was discussed with nurse Ideally erythromycin Iv but this is not available, will order Reglan EGD today, consent PPI Monitor hh Transfuse as needed Further recommendations to follow Patient was seen per myself and Dr. Tan, note was written on his behalf (Helen Stephens) Physician Comments Patient seen and examined Agree with above Continue with current supportive care Monitor labs EGD today (Rickey Tan MD) Helen Stephens July 18, 2017 12:34 Rickey Tan MD July 18, 2017 13:23
--- NOTE | 2017-07-18 15:28 | RADRPT ---
EXAM DATE: 07/17/2017 9:18 PM EDT AGE/SEX: 42 years / Male INDICATIONS: Patient presents with active GI bleed in need of angiogram with embolization. CLINICAL DATA: This is the patient's initial encounter. Patient reports that signs and symptoms have been present for 1 day and indicates a pain score of 4/10. MEDICAL/SURGICAL HISTORY: Hypertension. Alcohol and tobacco dependence Hernia repair COMPARISON: No prior [place] exams available for comparison. FLUORO TIME (min): 10.22 IMAGE SERIES: 12 ACCESS SITE: Right femoral artery SEDATION TIME (min): 60 CONTRAST (cc): 80CC Visipaque (iodixanol) 2mg midazolam (Versed) IV 200mcg fentanyl (Sublimaze) IV DEVICE(S): gastroepiploic artery Gelfoam 12-7mm gastroepiploic artery embolic coil 018 Tornado 3X2MM gastroepiploic artery embolic coil(s) Interlock [id number] gastroepiploic artery embolic coil(s) 018 Tornado 3X2MM gastroepiploic artery embolic coil(s) Interlock [id number] Right common femoral artery Syvek pad . . PROCEDURE : 1. Ultrasound-guided puncture of the access site. 2. Conscious sedation with continuous EKG and Oximetry monitoring. 3. Angiography of the gastroepiploic artery 4. Gelfoam and coil embolization of the gastroepiploic artery 5. Angiography of the SMA The risks, benefits and alternatives to the procedure were explained and verbal and written consent w as obtained. The site was prepped in sterile fashion. Full sterile technique was used, including ca p, mask, sterile gloves and gown and a large sterile sheet. Hand hygiene and 2% chlorhexidine and/or betadine/alcohol prep was utilized per protocol for cutaneous antisepsis. Sterile gel and sterile p robe cover were utilized for ultrasound guidance. The skin and subcutaneous tissues were infiltrated with local anesthetic solution. With ultrasound and fluoroscopic guidance the selected artery was punctured and a vascular sheath was placed. A hook catheter was used to select the origin of the SMA. Contrast injection demonstrated a replaced right hepatic. Otherwise, normal arborization of the SMA distribution. The same catheter was then used to select the origin of the celiac. The left gastric, left hepatic an d splenic were both identified. The GDA emanating from the left gastric artery. Glidewire and cathete r were advanced out into the left gastric. Wire was removed and replaced with a Oliver wire to facilit ate placement of a 5 Ivorian, 55 cm Ryley the origin of the celiac. The hockey-stick catheter and Hessel wire were then manipulated into the GDA. Through the hockey-stick catheter, the renegade high flow mi crocatheter and Glidewire were then manipulated out into the gastroepiploic artery. Contrast injectio n showed normal arborization along the greater curvature of the stomach with no active bleeding ident ified. However, with patient's recent episode of severe blood loss, coffee ground emesis and melena, empiric embolization of the gastroepiploic was performed with a small amount of Gelfoam slurry and a series of 3 mm Tornado and interlock coils to cessation of antegrade flow. The puncture site was closed with manual pressure and hemostasis was obtained. The patient tolerated the procedure well and there were no complications. Conscious sedation was performed with the prescribed dosages and duration as above in the presence of an independent trained radiology nurse to assist in the monitoring of the patient. EKG and oximetry remained stable throughout the procedure. CONCLUSION: 1. Anatomic variant of the mesenteric vessels with a replaced right hepatic. 2. Microcatheter angiography of the gastroepiploic with no active bleeding identified. 3. Empiric embolization of the gastroepiploic as detailed above. Electronically signed by: Maciel Mcknight MD 07/18/2017 3:27 PM EDT
[2017-07-18 17:16] LABS: HEMOGLOBIN 7.2 GM/DL (13.0-17.0)
[2017-07-18] MEDS ORDERED: DO NOT ADM ANY ANTICOAGULANT DRUGS PRN (17:48)
--- NOTE | 2017-07-18 17:49 | PD.PROCEDR ---
GI Procedure PROCEDURE PERFORMED EGD with clip placement INDICATION FOR PROCEDURE Acute upper GI bleed PROCEDURE: The procedure, risks and benefits were discussed with Patient/POA and informed consent was obtained. Anesthesia sedated Patient with Diprivan. Patient was placed in the left lateral decubitus position. EGD: The Pentax videoscope was introduced through the oropharynx and advanced to the second portion of the duodenum under direct visualization. Retroflexion was performed in the stomach. FINDINGS: The esophagus this appeared to be unremarkable and within normal limits Stomach there was evidence of fresh blood in the stomach this was flushed out there was a small dieulafoy noted at the proximal end of the cardia adjacent to the GE junction 3 clips were placed with good closure the rest of the gastric mucosa was unremarkable and within normal limits The duodenum this to appear to be unremarkable and within normal limits ESTIMATED BLOOD LOSS: None SPECIMENS REMOVED: None COMPLICATIONS: None IMPRESSION: Dieulafoy in the cardia status post clipping PLAN: Supportive care Advance diet as tolerated If all is stable tomorrow patient may be discharged later in the afternoon after advancing his diet Rickey Tan MD July 18, 2017 17:49
[2017-07-19] VITALS (17 sets, daily range): BP systolic 102–120; BP diastolic 52–66; PULSE 84–114; RESP 15–20; TEMP 98–99.7; O2SAT 96–100
[2017-07-19 00:24] LABS: HEMOGLOBIN 5.2 GM/DL (13.0-17.0)
[2017-07-19] MEDS ORDERED: SODIUM CHLOR 0.9% 250 ML INJ 250 ML IV ONE ×2 (00:30→14:00)
[2017-07-19] MEDS: DOCUSATE SODIUM 50 MG/SENNA 8.6 MG TAB PO SCH ×2 (09:00→19:52)
[2017-07-19] MEDS: SODIUM CHLORIDE 0.9% FLUSH 10 ML FLUSH IV FLUSH SCH ×2 (09:00→19:53)
[2017-07-19] MEDS: MULTIVITAMINS/MINERALS THERAPEUTIC TAB PO SCH (09:42)
[2017-07-19] MEDS: THIAMINE HCL 100 MG TAB PO SCH (09:42)
[2017-07-19] MEDS: FOLIC ACID 1 MG TAB PO SCH (09:43)
[2017-07-19 10:35] LABS: AUTOMATED NEUTROPHIL # 3.8 TH/MM3 (1.8-7.7); BASOPHIL % 0.6 % (0.0-2.0); EOSINOPHIL # 0.1 TH/MM3 (0-0.4); EOSINOPHIL % 1.3 % (0.0-4.0); HEMOGLOBIN 7.5 GM/DL (13.0-17.0); LYMPH % 37.3 % (9.0-44.0); LYMPHOCYTE # 2.7 TH/MM3 (1.0-4.8); MEAN CELL VOLUME 88.5 FL (80.0-100.0); MEAN CORPUSCULAR HEMOGLOBIN 31.5 PG (27.0-34.0); MEAN CORPUSCULAR HGB CONC 35.6 % (32.0-36.0); MEAN PLATELET VOLUME 8.6 FL (7.0-11.0); MONO % 6.8 % (0.0-8.0); MONOCYTE # 0.5 TH/MM3 (0-0.9); PLATELET COUNT 74 TH/MM3 (150-450); RED BLOOD COUNT 2.37 MIL/MM3 (4.50-5.90); RED CELL DISTRIBUTION WIDTH 15.8 % (11.6-17.2); WHITE BLOOD COUNT 7.1 TH/MM3 (4.0-11.0)
[2017-07-19 11:10] LABS: BICARBONATE 24.1 MEQ/L (21.0-32.0); CALCIUM 7.2 MG/DL (8.5-10.1); CREATININE 0.73 MG/DL (0.60-1.30); MAGNESIUM 1.8 MG/DL (1.5-2.5)
[2017-07-19] MEDS: SODIUM CHLOR 0.9% 1000 ML INJ 1,000 ML IV SCH (11:10)
--- NOTE | 2017-07-19 15:08 | HHI.GIFU ---
Subjective Remarks Pt is sitting in bed, doing better today, had small black stool this am, not as sticky as they used to be, no more BMs since. Hgb went down to 5.2 last night, he is s/p 2 units of blood, hgb currently is 7.5, he is inquiring about diet. (Helen Stephens) Objective Vitals I&O Vital Signs Date Time Temp Pulse Resp B/P (MAP) Pulse Ox O2 Delivery O2 Flow Rate FiO2 07/19/17 10:22 99 07/19/17 08:00 98.4 91 18 117/57 (77) 100 07/19/17 06:32 98.4 88 18 115/60 100 07/19/17 04:11 98.7 93 18 109/58 97 07/19/17 03:50 98.6 90 18 120/60 100 07/19/17 03:33 98.0 92 18 116/58 100 07/19/17 01:31 98.2 105 16 115/52 99 07/19/17 01:17 98.7 114 16 118/56 98 07/19/17 00:09 99.7 108 20 102/59 (73) 100 07/18/17 21:00 99.1 110 20 117/73 (88) 100 07/18/17 18:15 98.2 101 16 106/70 (82) 100 Room Air 07/18/17 18:00 119 16 105/73 (84) 100 Room Air 07/18/17 18:00 96 07/18/17 17:45 113 16 103/69 (80) 99 Room Air 07/18/17 17:45 98.0 116 14 103/69 (80) 100 Room Air 07/18/17 17:30 116 16 106/57 (73) 99 Room Air I/O 07/18/17 07/18/17 07/18/17 07/19/17 07/19/17 07/19/17 07:00 15:00 23:00 07:00 15:00 23:00 Intake Total 2940 ml 400 ml 400 ml 810 ml Output Total 500 ml 10 ml Balance 2440 ml 400 ml 390 ml 810 ml Intake Oral 350 ml IV Total 1080 ml Packed Cells 1450 ml 400 ml 800 ml Blood Product IV Normal Saline Flush 60 ml 10 ml Other 400 ml Output Stool Total 500 ml Estimated Blood Loss 10 ml # Bowel Movements 5 Laboratory Laboratory Tests Test 07/18/17 16:22 07/19/17 00:01 07/19/17 09:47 Hemoglobin 7.2 5.2 7.5 Hematocrit 21.0 15.0 21.0 White Blood Count 7.1 Red Blood Count 2.37 Mean Corpuscular Volume 88.5 Mean Corpuscular Hemoglobin 31.5 Mean Corpuscular Hemoglobin Concent 35.6 Red Cell Distribution Width 15.8 Platelet Count 74 Mean Platelet Volume 8.6 Neutrophils (%) (Auto) 54.0 Lymphocytes (%) (Auto) 37.3 Monocytes (%) (Auto) 6.8 Eosinophils (%) (Auto) 1.3 Basophils (%) (Auto) 0.6 Neutrophils # (Auto) 3.8 Lymphocytes # (Auto) 2.7 Monocytes # (Auto) 0.5 Eosinophils # (Auto) 0.1 Basophils # (Auto) 0.0 CBC Comment AUTO DIFF Differential Comment AUTO DIFF CONFIRMED Platelet Estimate LOW Platelet Morphology Comment NORMAL Blood Urea Nitrogen 9 Creatinine 0.73 Random Glucose 118 Total Protein 4.0 Calcium Level 7.2 Magnesium Level 1.8 Sodium Level 142 Potassium Level 3.0 Chloride Level 108 Carbon Dioxide Level 24.1 Anion Gap 10 Estimat Glomerular Filtration Rate 119 Protein Corrected Calcium 9.0 Imaging Last Impressions Liver Ultrasound 07/17/17 Signed Impressions: CONCLUSION: 1. Small subcentimeter cyst in the left lobe of the liver. 2. Otherwise, unremarkable right upper quadrant ultrasound exam. Specifically, no sonographic evidence for cholelithiasis or acute cholecystitis. Chest X-Ray 07/17/17 Signed Impressions: CONCLUSION: No active disease. Abdomen Arteriogram 07/17/17 Signed Impressions: CONCLUSION: 1. Anatomic variant of the mesenteric vessels with a replaced right hepatic. 2. Microcatheter angiography of the gastroepiploic with no active bleeding debra ntified. 3. Empiric embolization of the gastroepiploic as detailed above. Physical Exam HEENT: normocephalic; atraumatic; no jaundice. CHEST: Chest is clear to auscultation and percussion. CARDIAC: Regular rate and rhythm with no murmur gallop or rubs. ABDOMEN: Soft, nondistended, some abd tenderness; no hepatosplenomegaly; bowel sounds are present in all four quadrants. EXTREMITIES: No clubbing, cyanosis, or edema. SKIN: Normal; no rash; no jaundice. REIMBURSEMENT ANALYST: No focal deficits; alert and oriented times three. (NapoleonhadleyHelen DOCKERY) Assessment and Plan Assessment: (1) GI bleed ICD Codes: K92.2 - Gastrointestinal hemorrhage, unspecified Status: Acute Plan 42-year-old male admitted on 07/17/2017 with probable upper GI bleed. Patient's had complications of coffee-ground emesis 3 over the past 24 hours as well as up to 5 large melena stools. He continues to have symptoms; heart rate is currently 109 mild tachycardia. Patient denies any history of GI bleed but does consume daily alcohol since the age of 23 as well as tobacco abuse up until this past week he has a history of mom with hep C but no family history of colon cancer. He also notes approximately 15 pound weight loss in the past 2 -3 years unintentional. Patient also notes symptoms of GERD and reflux over the past year but is never had any treatment for it no previous EGD or colonoscopy currently patient is n.p.o. Current hemoglobin is 14.9, elevated liver enzymes with AST 110 and ALT 159. Total bilirubin normal at 0.9 these elevated liver enzymes may be related to alcoholic hepatitis versus hepatocellular disease. Discussed with the patient the need to follow us on an outpatient basis when he is discharged for monitoring of his LFTs and liver workup. 07/18 still passing black stools, drop in hgb, 2 units of blood over night, hgb today is 7.7, receiving 3rd unit today S/p EGD 07/17 ,Gastric bleed from the greater curve of the stomach s/p angiogram yesterday with no active bleed US unremarkable, hepatitis panel negative LFTs back to normal (07/19) melena/ anemia s/p EGD on 07/18---> Dieulafoy lesion s/p clipping. Doing better today, had small black stool this am, not as sticky as they used to be, no more BMs since. Hgb went down to 5.2 last night, he is s/p 2 units of blood, hgb currently is 7.5, he is inquiring about diet. There's plans for 2 more units Plan Regular diet Notify gi for active bleed PPI Monitor hh Transfuse as needed Further recommendations to follow Patient was seen per zainaelf and Dr. Tan, note was written on his behalf (Helen Stephens) Physician Comments Patient seen and examined Agree with above Continue with current supportive care Monitor labs (Rickey Tan MD) Helen Stephens July 19, 2017 15:08 Rickey Tan MD July 19, 2017 19:09
--- NOTE | 2017-07-19 17:22 | HHI.PR ---
Subjective Remarks 42-year-old male who is receiving blood transfusions following an acute upper GI bleed. He reports that he still gets tachycardia when he gets up to use the bedside commode. He denies any recent melena though he was vomiting profuse coffee-ground emesis on arrival to the ER 2 days ago. Objective Vitals Vital Signs Date Time Temp Pulse Resp B/P (MAP) Pulse Ox O2 Delivery O2 Flow Rate FiO2 07/19/17 16:00 98.9 86 18 115/62 (79) 100 07/19/17 15:42 98.9 85 18 115/62 100 07/19/17 15:32 98.5 85 18 112/66 100 07/19/17 15:27 98.7 84 18 111/62 100 07/19/17 12:00 98.2 86 18 116/64 (81) 100 07/19/17 10:22 99 07/19/17 08:00 98.4 91 18 117/57 (77) 100 07/19/17 06:32 98.4 88 18 115/60 100 07/19/17 04:11 98.7 93 18 109/58 97 07/19/17 03:50 98.6 90 18 120/60 100 07/19/17 03:33 98.0 92 18 116/58 100 07/19/17 01:31 98.2 105 16 115/52 99 07/19/17 01:17 98.7 114 16 118/56 98 07/19/17 00:09 99.7 108 20 102/59 (73) 100 07/18/17 21:00 99.1 110 20 117/73 (88) 100 07/18/17 18:15 98.2 101 16 106/70 (82) 100 Room Air 07/18/17 18:00 119 16 105/73 (84) 100 Room Air 07/18/17 18:00 96 07/18/17 17:45 113 16 103/69 (80) 99 Room Air 07/18/17 17:45 98.0 116 14 103/69 (80) 100 Room Air 07/18/17 17:30 116 16 106/57 (73) 99 Room Air I/O 07/18/17 07/18/17 07/18/17 07/19/17 07/19/17 07/19/17 07:00 15:00 23:00 07:00 15:00 23:00 Intake Total 2940 ml 400 ml 400 ml 810 ml 125 ml Output Total 500 ml 10 ml Balance 2440 ml 400 ml 390 ml 810 ml 125 ml Intake Oral 350 ml IV Total 1080 ml Packed Cells 1450 ml 400 ml 800 ml Blood Product IV Normal Saline Flush 60 ml 10 ml 125 ml Other 400 ml Output Stool Total 500 ml Estimated Blood Loss 10 ml # Voids 3 # Bowel Movements 5 2 Result Diagram: 07/19/1794607/19/17946 Objective Remarks GENERAL: Well-nourished, well-developed patient. SKIN: Warm and dry. Pale HEAD: Normocephalic. EYES: No scleral icterus. No injection or drainage. Pale sclera NECK: Supple, trachea midline. No JVD or lymphadenopathy. CARDIOVASCULAR: Regular rate and rhythm without murmurs, gallops, or rubs. RESPIRATORY: Breath sounds equal bilaterally. No accessory muscle use. GASTROINTESTINAL: Abdomen soft, non-tender, nondistended. EXTREMITIES: No cyanosis, or edema. Pale finger nailbeds NEUROLOGICAL: Awake, alert, and oriented x 3. Non-focal. Procedures EGD and gastroepiploic artery embolization A/P Problem List: (1) GI bleed ICD Code: K92.2 - Gastrointestinal hemorrhage, unspecified Status: Acute Assessment and Plan Acute upper GI bleed Patient presented to the ER 2 days ago with melena, coffee-ground emesis Hemoglobin drop down to 5.2 last night and patient was given 2 more units of packed red blood cells Gastroenterology discovered a Dieulafoy lesion which was treated with clipping on 07/18, interventional radiology assisted with coil placement in gastroepiploic artery Patient reports that his stools are turning brown again, gastroenterology G added back regular diet We will obtain CBC in a.m. to follow trend status post transfusion Continue with Protonix Appreciate gastroenterology consult h/o alcoholism Patient was counseled again to stop drinking alcohol due to risk of upper GI bleeds He plans to stop drinking alcohol completely Discharge planning We will discharge when cleared by Bhupendra Alexis MD July 19, 2017 17:22
[2017-07-20 01:28] VITALS: BP 112/63; PULSE 81; RESP 15; TEMP 98.1; O2SAT 98
[2017-07-20] MEDS: SODIUM CHLOR 0.9% 1000 ML INJ 1,000 ML IV SCH (01:31)
[2017-07-20 05:58] LABS: BASOPHIL # 0.1 TH/MM3 (0-0.2); BASOPHIL % 0.7 % (0.0-2.0); EOSINOPHIL # 0.2 TH/MM3 (0-0.4); EOSINOPHIL % 2.6 % (0.0-4.0); HEMATOCRIT 27.7 % (39.0-51.0); HEMOGLOBIN 9.9 GM/DL (13.0-17.0); LYMPH % 34.3 % (9.0-44.0); LYMPHOCYTE # 2.4 TH/MM3 (1.0-4.8); MEAN CELL VOLUME 86.3 FL (80.0-100.0); MEAN CORPUSCULAR HGB CONC 35.9 % (32.0-36.0); MEAN PLATELET VOLUME 8.5 FL (7.0-11.0); MONO % 5.3 % (0.0-8.0); MONOCYTE # 0.4 TH/MM3 (0-0.9); NEUT % 57.1 % (16.0-70.0); PLATELET COUNT 89 TH/MM3 (150-450)
[2017-07-20 06:17] LABS: BICARBONATE 27.6 MEQ/L (21.0-32.0); CALCIUM 7.7 MG/DL (8.5-10.1); CREATININE 0.71 MG/DL (0.60-1.30)
[2017-07-20 08:00] VITALS: BP 107/65; PULSE 82; RESP 17; TEMP 98.2; O2SAT 98
[2017-07-20] MEDS: DOCUSATE SODIUM 50 MG/SENNA 8.6 MG TAB PO SCH (09:00)
[2017-07-20] MEDS: THIAMINE HCL 100 MG TAB PO SCH (09:02)
[2017-07-20] MEDS: MULTIVITAMINS/MINERALS THERAPEUTIC TAB PO SCH (09:02)
[2017-07-20] MEDS: SODIUM CHLORIDE 0.9% FLUSH 10 ML FLUSH IV FLUSH SCH (09:03)
[2017-07-20] MEDS: FOLIC ACID 1 MG TAB PO SCH (09:03)
[2017-07-20 12:00] VITALS: BP 114/55; PULSE 90; RESP 17; TEMP 98.1; O2SAT 98
--- NOTE | 2017-07-20 14:22 | HHI.DS ---
Discharge Summary Admission Date July 17, 2017 at 10:29 Discharge Date: July 20, 2017 Admitting Diagnosis GI bleed/tachycardia (1) GI bleed ICD Code: K92.2 - Gastrointestinal hemorrhage, unspecified Status: Acute Procedures EGD and gastroepiploic artery embolization Brief History - From Admission This is a 42-year-old male who presents to the emergency department because of GI bleed. Started last night when he vomited dark material associated with chills and diaphoresis. Early this morning, he again vomited this time with dark blood associated with upper abdominal pressure which he has been having for some time now states feels like indigestion. He also noted dark foul- smelling loose stools today. Denies history of GI bleed, aspirin and NSAID usage. Patient history of hypertension, alcohol abuse and recently quit tobacco. In the ED he was guaiac positive. All other systems reviewed negative CBC/BMP: 07/20/17 0456 07/20/17 0456 Significant Findings Laboratory Tests Test 07/17/17 18:29 07/17/17 23:40 07/18/17 06:35 07/18/17 16:22 Hemoglobin 9.5 GM/DL (13.0-17.0) 6.8 GM/DL (13.0-17.0) 7.7 GM/DL (13.0-17.0) 7.2 GM/DL (13.0-17.0) Hematocrit 27.8 % (39.0-51.0) 19.9 % (39.0-51.0) 22.5 % (39.0-51.0) 21.0 % (39.0-51.0) Red Blood Count 2.50 MIL/MM3 (4.50-5.90) Red Cell Distribution Width 19.5 % (11.6-17.2) Platelet Count 127 TH/MM3 (150-450) Blood Urea Nitrogen 28 MG/DL (7-18) Creatinine 0.53 MG/DL (0.60-1.30) Total Protein 4.1 GM/DL (6.4-8.2) Albumin 2.3 GM/DL (3.4-5.0) Calcium Level 7.0 MG/DL (8.5-10.1) Alkaline Phosphatase 34 U/L (45-117) Chloride Level 108 MEQ/L (98-107) Test 07/19/17 00:01 07/19/17 09:47 07/20/17 04:56 Hemoglobin 5.2 GM/DL (13.0-17.0) 7.5 GM/DL (13.0-17.0) 9.9 GM/DL (13.0-17.0) Hematocrit 15.0 % (39.0-51.0) 21.0 % (39.0-51.0) 27.7 % (39.0-51.0) Red Blood Count 2.37 MIL/MM3 (4.50-5.90) 3.20 MIL/MM3 (4.50-5.90) Platelet Count 74 TH/MM3 (150-450) 89 TH/MM3 (150-450) Platelet Estimate LOW (NORMAL) LOW (NORMAL) Random Glucose 118 MG/DL (74-106) Total Protein 4.0 GM/DL (6.4-8.2) Calcium Level 7.2 MG/DL (8.5-10.1) 7.7 MG/DL (8.5-10.1) Potassium Level 3.0 MEQ/L (3.5-5.1) 3.4 MEQ/L (3.5-5.1) Chloride Level 108 MEQ/L (98-107) 109 MEQ/L (98-107) Blood Urea Nitrogen 4 MG/DL (7-18) PE at Discharge GENERAL: Well-nourished, well-developed patient. SKIN: Warm and dry. Pale HEAD: Normocephalic. EYES: No scleral icterus. No injection or drainage. Pale sclera NECK: Supple, trachea midline. No JVD or lymphadenopathy. CARDIOVASCULAR: Regular rate and rhythm without murmurs, gallops, or rubs. RESPIRATORY: Breath sounds equal bilaterally. No accessory muscle use. GASTROINTESTINAL: Abdomen soft, non-tender, nondistended. EXTREMITIES: No cyanosis, or edema. Pale finger nailbeds NEUROLOGICAL: Awake, alert, and oriented x 3. Non-focal. Hospital Course 42-year-old male with history of excessive alcohol use presented with melena, coffee-ground emesis 3 days ago. His blood work indicated acute anemia. Gastroenterology became involved and EGD found a Dieulafoy lesion that was addressed with gastro epiploic artery embolization in order to control the hemorrhage. He received a total of 7 units of blood during this hospitalization. The last 4 units of blood have resulted in stable increases in his hemoglobin. His stools he reports are now green rather than the black tarry stools that he presented with. We had a long discussion about excessive alcohol use and how that causes dilation of the vessels in leads to gastric bleeding. He has not experienced withdrawal during his stay and plans to not drink after this date due to this experience. He asked me if it was safe to return to work in 3 days, I said yes. At this time there is no evidence of bleeding and he is therefore stable for discharge home. A lab slip with PRN H& H levels has been provided and he has requested to establish and follow-up with primary care provider or an urgent care center in the next week. I recommended that he draw labs in 2 days, 1 week, 1 month. He should also repeat liver enzyme levels with his primary care physician, though this is likely due to excessive alcohol use and should resolve spontaneously seeing the axilla resolution would be prudent. Pt Condition on Discharge: Good Discharge Disposition: Discharge Home Discharge Time: <= 30 minutes Discharge Instructions DIET: Follow Instructions for: As Tolerated, No Restrictions Activities you can perform: Regular-No Restrictions Bhupendra Hargrove MD July 20, 2017 14:22
[2017-07-20 16:00] VITALS: BP 112/63; PULSE 78; RESP 17; TEMP 98.8; O2SAT 100
[2017-07-20 16:38] LABS: HEMATOCRIT 35.1 % (39.0-51.0); HEMOGLOBIN 12.2 GM/DL (13.0-17.0)
== END 2017-07-20 17:24 | disposition home or self-care (01) | DRG 982 ==
LOC: NEPE 08:01 → NEDA 10:29 → NEPHCDU 19:23 → N06B 07-19 02:55
PROVIDERS: ADMIT Family Medicine; ATTEND Family Medicine
PROC: 0DJ08ZZ Inspection of Upper Intestinal Tract, Via Natural or Artificial Opening Endoscopic (ICD-10-PCS; 2017-07-17)
PROC: B414YZZ Fluoroscopy of Superior Mesenteric Artery using Other Contrast (ICD-10-PCS; 2017-07-18)
PROC: 0W3P8ZZ Control Bleeding in Gastrointestinal Tract, Via Natural or Artificial Opening Endoscopic (ICD-10-PCS; 2017-07-18)
PROC: 30233N1 Transfusion of Nonautologous Red Blood Cells into Peripheral Vein, Percutaneous Approach (ICD-10-PCS; 2017-07-18)
PROC: 04V23DZ Restriction of Gastric Artery with Intraluminal Device, Percutaneous Approach (ICD-10-PCS; principal; 2017-07-18 17:03)
DX: K31.82 Dieulafoy lesion (hemorrhagic) of stomach and duodenum (principal); E87.1 Hypo-osmolality and hyponatremia; K76.89 Other specified diseases of liver; Z68.1 Body mass index [BMI] 19.9 or less, adult; D62 Acute posthemorrhagic anemia; I10 Essential (primary) hypertension; R00.0 Tachycardia, unspecified; R63.4 Abnormal weight loss; Q27.8 Other specified congenital malformations of peripheral vascular system; F10.20 Alcohol dependence, uncomplicated; Z87.891 Personal history of nicotine dependence
CPT/HCPCS: 36245; 36247; 36430; 37244; 71045; 75726; 75774; 76705; 76937; 80048; 80053; 80074; 83690; 83735; 84155; 85014; 85018; 85025; 85610; 85730; 86850; 86900; 86901; 86920; 96361; 96365; 96368; 96375; 99152; 99153; C1769; C1887; C1894; C9113; J0330; J1100; J2250; J2370; J2405; J2765; J3010; J7030; J7050; P9016; Q9967